=== PATIENT | male | born 1965 ===

== ENCOUNTER 2017-03-24 22:50 | Inpatient (IN) | payer MEDICAID ==
--- NOTE | 2017-03-24 23:07 | C.PDOC ---
History Of Present Illness 51 year old male presents to ED requesting detox from heroin. He reports his last use was 6 hours ago and also admits to drinking alcohol and using cocaine. Denies any symptoms of withdrawals, any suicidal or homicidal ideation or other complaints Time Seen by Provider: 03/24/17 23:03 Chief Complaint (Nursing): Substance Abuse History Per: Patient History/Exam Limitations: no limitations Onset/Duration Of Symptoms: Hrs Past Medical History Reviewed: Historical Data, Nursing Documentation, Vital Signs Vital Signs: Last Vital Signs Temp 98.4 F 03/24/17 22:58 Pulse 84 03/24/17 22:58 Resp 16 03/24/17 22:58 BP 143/86 03/24/17 22:58 Pulse Ox 98 03/25/17 01:05 - Medical History PMH: Back Problems Family History: States: Unknown Family Hx - Social History Hx Tobacco Use: Yes Hx Alcohol Use: No Hx Substance Use: Yes (heroin, cocaine, benzos) - Immunization History Hx Tetanus Toxoid Vaccination: No Hx Influenza Vaccination: No Hx Pneumococcal Vaccination: No Review Of Systems Except As Marked, All Systems Reviewed And Found Negative. Physical Exam - Physical Exam Appears: Non-toxic, No Acute Distress Skin: Warm, Dry, No Diaphoretic, No Rash Head: Atraumatic, Normacephalic Eye(s): bilateral: Normal Inspection Nose: Normal Oral Mucosa: Moist Neck: Normal ROM Chest: Symmetrical Cardiovascular: Rhythm Regular, No Murmur Respiratory: Normal Breath Sounds, No Wheezing Extremity: Bilateral: Atraumatic, Normal Color And Temperature, Normal ROM Neurological/Psych: Oriented x3, Normal Speech ED Course And Treatment - Laboratory Results Result Diagrams: 03/24/17 23:14 03/24/17 23:14 O2 Sat by Pulse Oximetry: 98 Medical Decision Making Medical Decision Making: Patient for heroin detox. Labs ordered for medical clearance. Labs reviewed showing elevated LFT, likely from alcohol; UDS positive for opiate and cocaine. In my clinical judgment patient is medically cleared and stable for psychiatric admission. gathering worker contacted for evaluation. As per CW patient is to be admitted under Dr Ochoa service for detox of opiate abuse. Disposition - Disposition Disposition: HOSPITALIZED Disposition Time: 01:26 Condition: STABLE - POA Present On Arrival: None - Clinical Impression Clinical Impression: Heroin abuse Decision To Admit - Pt Status Changed To: Hospital Disposition Of: Inpatient - Admit Certification Admit to Inpatient:: After my assessment, the patient will require hospitalization for at least two midnights. This is because of the severity of symptoms shown, intensity of services needed, and/or the medical risk in this patient being treated as an outpatient. - InPatient: Physician Admission Certification: I certify that this patient requires 2 or more midnights of care for the following reason:: Patient to be admitted to Dr Ochoa service for detox of opiate abuse. - . Bed Request Type: Detox Admitting Physician: Prerna Ochoa Patient Diagnosis: Heroin abuse
[2017-03-24 23:16] LABS: BASO # 0.1 K/uL (0.0-0.2); BASO % 0.8 % (0.0-2.0); EOS # 0.1 K/uL (0.0-0.7); EOS % 1.5 % (0.0-4.0); HEMOGLOBIN 12.1 g/dL (12.0-18.0); LYMPH # 2.2 K/uL (1.0-4.3); LYMPH % 27.2 % (20.0-40.0); MEAN CELL VOLUME 89.1 fL (80.0-94.0); MEAN CORPUSCULAR HEMOGLOBIN 29.4 pg (27.0-31.0); MEAN PLATELET VOLUME 8.6 fL (7.2-11.7); MONO # 0.5 K/uL (0.0-0.8); NEUT # 5.1 K/uL (1.8-7.0); NEUT % 64.5 % (50.0-75.0); NRBC % 0.1 % (0.0-2.0); RBC 4.1 Mil/uL (4.40-5.90); RED CELL DISTRIBUTION WIDTH 13.1 % (11.5-14.5)
[2017-03-24 23:20] LABS: URINE BACTERIA RARE (<OCC); URINE BILIRUBIN NEGATIVE (NEGATIVE); URINE BLOOD NEGATIVE (NEGATIVE); URINE CLARITY Clear (Clear); URINE COLOR Yellow (YELLOW); URINE GLUCOSE (UA) NORMAL (Normal); URINE LEUKOCYTE ESTERASE NEG Leu/uL (Negative); URINE NITRATE NEGATIVE (NEGATIVE); URINE PROTEIN 1+ mg/dL (NEGATIVE); URINE UROBILINOGEN NORMAL mg/dL (0.2-1.0)
[2017-03-24 23:27] LABS: ALBUMIN 3.9 g/dL (3.5-5.0)
[2017-03-24 23:29] LABS: AST/SGOT 127 U/L (17-59); GFR AFRICAN-AMERICAN > 60; GFR NON-AFRICAN AMERICAN > 60
[2017-03-24 23:30] LABS: ALT/SGPT 128 U/L (21-72); BARBITURATES, UR NEGATIVE (NEGATIVE); BLOOD UREA NITROGEN 15 mg/dL (9-20)
[2017-03-24 23:31] LABS: BENZODIAZEPINES, UR NEGATIVE (NEGATIVE)
[2017-03-24 23:34] LABS: PHENCYCLIDINE, UR NEGATIVE (NEGATIVE)
[2017-03-24 23:35] LABS: OPIATES, UR POSITIVE (NEGATIVE)
[2017-03-25] MEDS ORDERED: Aluminum Hydroxide/Magnesium Hydroxide Susp (30 mL) PO PRN (08:33)
--- NOTE | 2017-03-25 12:10 | PCM.PSYCH ---
Initial Psychiatric Evaluation - Initial Psychiatric Evaluation Type of Admission: Voluntary Legal Status: Capacity Chief Complaint (in patient's own words): 'i'm withdrawing bad" History of Present Illness and Precipitating Events: The patient is seen, chart reviewed and case discussed. 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 The patient is here for heroin detox as he is using 10 bags of IV heroin for the past 10 years, "off and on." His longest sobriety was 2 years but this is his first detox and he has never been to rehabilitation, NA, Suboxone or methadone maintenance. He also uses cocaine by smoking, cigarettes about 10 a day and alcohol about a pint and some beer. He says he has had withdrawals from alcohol but never had DTs or seizures and currently he feels "okay." His last used for both alcohol and heroine was last night around 6 PM. He used alcohol for 15 years. Past psych history: Denies Medical history: Sciatica and hepatitis C. His LFTs are elevated. Family psych history: Denies Current Medications: Active Medications Generic Name Dose Route Start Last Admin Trade Name Freq PRN Reason Stop Dose Admin Al Hydrox/Mg Hydrox/Simethicone 30 ml 03/25/17 08:33 Maalox 30 Ml PO TID PRN Indigestion / Heartburn Clonidine HCl 0.1 mg 03/25/17 08:33 Catapres PO Q8 PRN COWS Score More or Equal to 5 Dicyclomine HCl 10 mg 03/25/17 08:34 Bentyl PO Q6H PRN spasms Hydroxyzine HCl 50 mg 03/25/17 08:34 Atarax PO Q6H PRN Anxiety Ibuprofen 600 mg 03/25/17 08:34 Motrin Tab PO Q6H PRN Pain, moderate (4-7) Loperamide HCl 2 mg 03/25/17 08:33 Imodium PO Q8 PRN Diarrhea Methadone HCl 20 mg 03/25/17 09:00 03/25/17 08:57 Methadone PO 03/30/17 08:59 20 mg Q24H GURDEEP Administration Taper Nicotine 1 patch 03/25/17 12:00 03/25/17 11:56 Nicoderm Cq TD 1 patch DAILY GURDEEP Administration Ondansetron HCl 4 mg 03/25/17 08:33 Zofran Tab PO Q8 PRN Nausea/Vomiting Pneumococcal Polyvalent Vaccine 0.5 ml 03/28/17 10:00 Pneumovax 23 Vaccine IM 03/28/17 10:01 .ONCE ONE Quetiapine Fumarate 100 mg 03/25/17 22:00 Seroquel PO HS GURDEEP Past Psychiatric History - Past Psychiatric History Previous Treatment History: None Pertinent Medical Hx (Current Medical&Sleep Prob, Allergies): Allergies Allergy/AdvReac Type Severity Reaction Status Date / Time No Known Allergies Allergy Verified 03/24/17 23:00 No Known Home Med 08/04/16 Review of Systems - Psychiatric Psychiatric: Abnormal Sleep Pattern, Anxiety, Irritability. absent: Hallucinations, Homicidal Ideation, Suicidal Ideation Mental Status Examination - Personal Presentation Personal Presentation: Looks older than stated age (guarded and evasive) - Affect Affect: Constricted - Motor Activity Motor Activity: Calm - Reliability in Providing Information Reliability in Providing Information: Fair - Speech Speech: Organized - Mood Mood: Anxious - Formal Thought Process Formal Thought Process: No Impairment - Cognitive Functions Orientation: Person, Place, Situation, Time Sensorium: Alert Attention/Concentration: Easily distracted Estimate of Intelligence: Average Judgement: Intact, as evidence by: Insight regarding need for hospitalization Memory: Recent intact, as evidence by: Ability to recall events of the day, Remote intact, as evidenced by: Abilit to recall sig. life events - Risk Risk: Withdrawal, Diminished functioning - Strength & Assets Inventory Strength & Assets Inventory: Employment history, Cooperative - Limitations Limitations: Living alone DSM 5 DX - DSM 5 DSM 5 Diagnosis: Opioid withdrawal Opioid use d/o - severe Cocaine use d/o - severe Alcohol use d/o - severe Hep C Sciatica - Recommended/Plan of Treatment Treatment Recommendations and Plan of Treatment: Opioids: Methadone detox As needed meds and vitamins Attend groups and activities [place] for abstinence and CBT for relapse prevention Support and psychoeducation Consider and encourage MAT Refer to after care Alcohol: Symptom-based detox with ativan Gabapentin for augmentation As needed meds and vitamins Attend groups and activities [place] for abstinence and CBT for relapse prevention Support and psychoeducation Consider and encourage MAT Refer to after care Cocaine: Gabapentin HI for abtinence As above Tobacco; Nicotine patch HI for abstinence 33 min Projected ELOS: 5 days Prognosis: good but he is somewhat motivated about after care Discharge Plan and Discharge Criteria: No wdw sxs Refer to MAT and rehab or IOP - Smoking Cessation Smoking Cessation Initiated: Yes
[2017-03-25] MEDS: Multiple Vitamins Tab PO SCH (14:19)
[2017-03-26] MEDS: Multiple Vitamins Tab PO SCH (09:34)
--- NOTE | 2017-03-26 12:52 | PCM.PYCHPN ---
Psychiatric Progress Note - Psychiatric Progress Note Patient seen today, length of contact: 16 min Patient Chief Complaint: "I was so bad last night, I took an extra 5 mg" Problems Identified/Issues Discussed: The pt is seen, chart reviewed, case discussed with staff. The pt is compliant with medications and reports no side-effects. Symptoms are improving but needs more time to stabilize. After care discussed, support and psychoeducation given. Medication Change: Yes (methadone adjusted) Medical Record Reviewed: Yes Mental Status Examination - Cognitive Function Orientation: Person, Place, Situation, Time Memory: Intact Attention: WNL Concentration: Poor Association: WNL Fund of Knowledge: WNL - Mood Mood: Anxious - Affect Affect: Constricted - Speech Speech: Appropriate - Formal Thought Process Formal Thought Process: No Impairment - Suicidal Ideation Suicidal Ideation: No - Homicidal Ideation Homicidal Ideation: No Goal/Treatment Plan - Goal/Treatment Plan Need for Continued Stay: Discharge may exacerbated symptoms, Severe functional impairment Progress Toward Problem(s) and Goals/Treatment Plan: Opioids: Methadone detox As needed meds and vitamins Attend groups and activities [place] for abstinence and CBT for relapse prevention Support and psychoeducation Consider and encourage MAT Refer to after care Alcohol: Symptom-based detox with ativan Gabapentin for augmentation As needed meds and vitamins Attend groups and activities [place] for abstinence and CBT for relapse prevention Support and psychoeducation Consider and encourage MAT Refer to after care Cocaine: Gabapentin [place] for abtinence As above Tobacco; Nicotine patch [place] for abstinence Estimated Date of D/C: 03/29/17
[2017-03-26 15:36] VITALS: RESP 18
[2017-03-27] MEDS: Multiple Vitamins Tab PO SCH (09:20)
--- NOTE | 2017-03-27 13:26 | PCM.PYCHPN ---
Psychiatric Progress Note - Psychiatric Progress Note Patient seen today, length of contact: 16 min Patient Chief Complaint: "Not doing well" Problems Identified/Issues Discussed: The pt is seen, chart reviewed, case discussed with staff. The pt is compliant with medications and reports no side-effects. He says extra methadone helped but he still gets into wdw a lot, but feels he is improving Support given, after care discussed Medication Change: Yes (methadone adjusted) Medical Record Reviewed: Yes Mental Status Examination - Cognitive Function Orientation: Person, Place, Situation, Time Memory: Intact Attention: WNL Concentration: Poor Association: WNL Fund of Knowledge: WNL - Mood Mood: Anxious - Affect Affect: Constricted - Speech Speech: Appropriate - Formal Thought Process Formal Thought Process: No Impairment - Suicidal Ideation Suicidal Ideation: No - Homicidal Ideation Homicidal Ideation: No Goal/Treatment Plan - Goal/Treatment Plan Need for Continued Stay: Discharge may exacerbated symptoms, Severe functional impairment Progress Toward Problem(s) and Goals/Treatment Plan: Opioids: Methadone detox adjusted As needed meds and vitamins Attend groups and activities [place] for abstinence and CBT for relapse prevention Support and psychoeducation Consider and encourage MAT Refer to after care Alcohol: Symptom-based detox with ativan Gabapentin for augmentation As needed meds and vitamins Attend groups and activities [place] for abstinence and CBT for relapse prevention Support and psychoeducation Consider and encourage MAT Refer to after care Cocaine: Gabapentin [place] for abtinence As above Tobacco; Nicotine patch MT for abstinence Estimated Date of D/C: 03/29/17
[2017-03-28] MEDS: Multiple Vitamins Tab PO SCH (09:25)
[2017-03-28] MEDS ORDERED: Pneumococcal 23-Valent Vaccine IM ONE (10:00)
[2017-03-28 14:19] VITALS: BP 135/90; PULSE 81; TEMP 97.5; O2SAT 100
--- NOTE | 2017-03-28 14:37 | PCM.PYCHDC ---
Mental Status Examination - Mental Status Examination Orientation: Person, Place, Situation, Time Memory: Intact Mood: Anxious Affect: Broad Speech: Appropriate Attention: WNL Concentration: WNL Association: WNL Fund of Knowledge: WNL Formal Thought Process: No Impairment Suicidal Ideation: No Current Homicidal Ideation?: No Discharge Summary - Discharge Note Reason for Hospitalization: Heroin detox Consultations:: List each consultation separately and include: 1. Reason for request. 2. Findings. 3. Follow-up Summary of Hospital Course include:: 1. Description of specific treatment plan utilized for patients during their course of treatmen. 2. Summarize the time- course for resolution of acute symptoms and/or regressed behaviors. 3. Describe issues identified and worked on during hospitalization. 4. Describe medication utilized. 5. Describe medical problems identified and treated. 6. Reassessment of suicide risk Summary of Hospital Course: The patient is seen, chart reviewed and case discussed. 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 The patient is here for heroin detox as he is using 10 bags of IV heroin for the past 10 years, "off and on." His longest sobriety was 2 years but this is his first detox and he has never been to rehabilitation, NA, Suboxone or methadone maintenance. He also uses cocaine by smoking, cigarettes about 10 a day and alcohol about a pint and some beer. He says he has had withdrawals from alcohol but never had DTs or seizures and currently he feels "okay." His last used for both alcohol and heroine was last night around 6 PM. He used alcohol for 15 years. Past psych history: Denies Medical history: Sciatica and hepatitis C. His LFTs are elevated. Family psych history: Denies Hospital course: The pt was admitted and started on treatment with psychotherapy, support, psychoeducation and medications. [place] and CBT used. The pt attended groups and activities, as well as milieu therapy. All the risks and benefits of medications are discussed and the patient understood and agreed. The pt improved with the treatments provided. After care discussed with the patient. Went to [facility] Left a day early - Final Diagnosis (DSM 5) Condition upon Discharge: STABLE DSM 5: Opioid withdrawal Opioid use d/o - severe Cocaine use d/o - severe Alcohol use d/o - severe Hep C Sciatica Disposition: HOME/ ROUTINE Follow-up Treatment Plan: [facility] for Hep C NA Continue below medications after discharge. Follow after care plan as discussed. Use relapse prevention skills Return to ER or call 911 if suicidal, homicidal or symptoms relapse. Stay away from stress, alcohol and drugs. See primary doctor once a year. Prescriptions/Medication Reconciliation: cloNIDine [Catapres] 0.1 mg PO Q8 PRN #4 tab PRN Reason: COWS Score More or Equal to 5 hydrOXYzine HCl [Atarax] 50 mg PO Q8 PRN #60 tab PRN Reason: Anxiety Ibuprofen [Motrin Tab] 600 mg PO Q8 PRN #60 tab PRN Reason: Pain, Moderate (4-7) QUEtiapine [Seroquel] 100 mg PO HS #30 tab traZODone [Desyrel] 50 mg PO HS PRN #30 tab PRN Reason: Insomnia
== END 2017-03-28 14:50 | disposition home or self-care (01) | DRG 744 ==
LOC: C.ER 22:50 → C.7D 03-25 01:25
PROVIDERS: ADMIT Psychiatry & Neurology Psychiatry; ATTEND Psychiatry & Neurology Psychiatry
PROC: HZ2ZZZZ Detoxification Services for Substance Abuse Treatment (ICD-10-PCS; principal; 2017-03-25)
PROC: HZ59ZZZ Individual Psychotherapy for Substance Abuse Treatment, Supportive (ICD-10-PCS; 2017-03-25)
PROC: HZ46ZZZ Group Counseling for Substance Abuse Treatment, Psychoeducation (ICD-10-PCS; 2017-03-25)
PROC: HZ90ZZZ Pharmacotherapy for Substance Abuse Treatment, Nicotine Replacement (ICD-10-PCS; 2017-03-25)
DX: F11.23 Opioid dependence with withdrawal (principal); F10.20 Alcohol dependence, uncomplicated; F14.20 Cocaine dependence, uncomplicated; B18.2 Chronic viral hepatitis C; M54.30 Sciatica, unspecified side; F17.210 Nicotine dependence, cigarettes, uncomplicated

== ENCOUNTER 2017-11-06 14:23 | Emergency (ER) | payer MEDICAID ==
[2017-11-06 14:58] VITALS: BMI 24.4
[2017-11-06 15:05] VITALS: BP 122/71; PULSE 80; RESP 19; TEMP 98.3; O2SAT 99
--- NOTE | 2017-11-06 15:54 | C.PDOC ---
History Of Present Illness 52 y/o male presents to ED requesting detox from heroin. Notes using heroin intranasally and IV, last use was at midnight. Denies fever, cough, chest pain, or any other complaints. Chief Complaint (Nursing): Substance Abuse History Per: Patient History/Exam Limitations: no limitations Past Medical History Reviewed: Historical Data, Nursing Documentation, Vital Signs Vital Signs: Last Vital Signs Temp 98.3 F 11/06/17 14:58 Pulse 80 11/06/17 14:58 Resp 19 11/06/17 14:58 BP 122/71 11/06/17 14:58 Pulse Ox 99 11/06/17 15:54 - Medical History PMH: Back Problems, Hepatitis (Hepatitis C. No treatment) Denies: Diabetes (Patient denied), HIV (Patient denied), HTN (Patient denied) , Chronic Kidney Disease, Seizures (Patient denied), Sexually Transmitted Disease (Patient denied) - [facility] Procedures DETOXIFICATION SERVICES FOR SUBSTANCE ABUSE TREATMENT (03/25/17) GROUP ECOLOGICAL TECHNICAL OFFICER FOR SUBSTANCE ABUSE TREATMENT, PSYCHOEDUCATION (03/25/17) INDIV PSYCHOTHERAPY FOR SUBSTANCE ABUSE TREATMENT, SUPPORT (03/25/17) PHARMACOTHERAPY FOR SUBSTANCE ABUSE, NICOTINE REPLACE (03/25/17) Family History: States: Unknown Family Hx - Social History Hx Tobacco Use: Yes Hx Alcohol Use: Yes Hx Substance Use: Yes (heroin, cocaine, alcohol) - Immunization History Hx Tetanus Toxoid Vaccination: No Hx Influenza Vaccination: No Hx Pneumococcal Vaccination: No Review Of Systems Except As Marked, All Systems Reviewed And Found Negative. Constitutional: Negative for: Fever, Chills Cardiovascular: Negative for: Chest Pain, Palpitations Respiratory: Negative for: Cough, Shortness of Breath Physical Exam - Physical Exam Appears: Non-toxic, No Acute Distress Skin: Normal Color, Warm, Dry Head: Atraumatic, Normacephalic Eye(s): bilateral: Normal Inspection Oral Mucosa: Moist Cardiovascular: Rhythm Regular Respiratory: Normal Breath Sounds, No Rales, No Rhonchi, No Wheezing Gastrointestinal/Abdominal: Soft, No Tenderness Extremity: Normal ROM Neurological/Psych: Oriented x3, Normal Speech ED Course And Treatment O2 Sat by Pulse Oximetry: 99 Disposition - Disposition Referrals: [facility] [Outside] [facility] [Outside] Disposition: HOME/ ROUTINE Disposition Time: 16:40 Condition: GOOD Additional Instructions: Thank you for letting us take care of you today. The emergency medical care you received today was directed at your acute symptoms. If you were prescribed any medication, please fill it and take as directed. It may take several days for your symptoms to resolve. Return to the Emergency Department if your symptoms worsen, do not improve, or if you have any other problems. Please contact your doctor or call one of the physicians/clinics you have been referred to that are listed on the Patient Visit Information form that is included in your discharge packet. Bring any paperwork you were given at discharge with you along with any medications you are taking to your follow up visit. Our treatment cannot replace ongoing medical care by a primary care provider (PCP) outside of the emergency department. Thank you for allowing the [facility] team to be part of your care today. Follow up with the clinic this week for outpatient care. Instructions: Polysubstance Abuse Forms: [employer] (Czech) - Clinical Impression Clinical Impression: Drug dependence - Scribe Statement The provider has reviewed the documentation as recorded by the Leonaibaime Mcguire All medical record entries made by the Leonaibaime were at my direction and personally dictated by me. I have reviewed the chart and agree that the record accurately reflects my personal performance of the history, physical exam, medical decision making, and the department course for this patient. I have also personally directed, reviewed, and agree with the discharge instructions and disposition.
== END 2017-11-06 17:05 | disposition home or self-care (01) ==
LOC: C.ER 14:23
DX: F19.20 Other psychoactive substance dependence, uncomplicated (principal)

== ENCOUNTER 2018-04-09 14:10 | Emergency (ER) | payer MEDICAID ==
[2018-04-09 14:11] VITALS: BMI 24.4
[2018-04-09 14:17] VITALS: BP 147/90; PULSE 106; RESP 16; TEMP 97.6; O2SAT 97
--- NOTE | 2018-04-09 15:03 | C.PDOC ---
History Of Present Illness 53 year old male presents to the ED requesting detox from alcohol, cocaine, and heroin. L ast use of all substances was this morning prior to arrival. Patient offers no physical complaints. He denies any suicidal or homicidal ideations. Time Seen by Provider: 04/09/18 14:21 Chief Complaint (Nursing): Substance Abuse History Per: Patient History/Exam Limitations: no limitations Onset/Duration Of Symptoms: Days Current Symptoms Are (Timing): Still Present Modifying Factor(s): Alcohol, Narcotics (heroin), Cocaine Severity: Moderate Associated Symptoms: denies: Suicidal Thoughts Past Medical History Reviewed: Historical Data, Nursing Documentation, Vital Signs Vital Signs: Last Vital Signs Temp 97.6 F 04/09/18 14:14 Pulse 106 H 04/09/18 14:14 Resp 16 04/09/18 14:14 BP 147/90 04/09/18 14:14 Pulse Ox 97 04/09/18 15:15 - Medical History PMH: Back Problems, Depression, Hepatitis (Hepatitis C. No treatment) Surgical History: No Surg Hx - [facility] Procedures DETOXIFICATION SERVICES FOR SUBSTANCE ABUSE TREATMENT (03/25/17) GROUP WRONG ADDRESS CLERK FOR SUBSTANCE ABUSE TREATMENT, PSYCHOEDUCATION (03/25/17) INDIV PSYCHOTHERAPY FOR SUBSTANCE ABUSE TREATMENT, SUPPORT (03/25/17) PHARMACOTHERAPY FOR SUBSTANCE ABUSE, NICOTINE REPLACE (03/25/17) Family History: States: No Known Family Hx - Social History Hx Tobacco Use: Yes Hx Alcohol Use: Yes Hx Substance Use: Yes (heroin, cocaine, alcohol) - Immunization History Hx Tetanus Toxoid Vaccination: No Hx Influenza Vaccination: No Hx Pneumococcal Vaccination: No Review Of Systems Constitutional: Negative for: Fever, Chills Cardiovascular: Negative for: Chest Pain, Palpitations Respiratory: Negative for: Cough, Shortness of Breath Gastrointestinal: Negative for: Nausea, Vomiting, Abdominal Pain, Diarrhea Neurological: Negative for: Headache, Dizziness Psych: Negative for: Suicidal ideation, Withdrawal Physical Exam - Physical Exam Appears: Well, Non-toxic, No Acute Distress Skin: Normal Color, Warm Head: Atraumatic, Normacephalic Eye(s): bilateral: Normal Inspection Oral Mucosa: Moist Cardiovascular: Rhythm Regular Respiratory: Normal Breath Sounds, No Rales, No Rhonchi, No Wheezing Gastrointestinal/Abdominal: Normal Exam, Bowel Sounds, Soft, No Tenderness Extremity: Normal ROM, No Pedal Edema, No Calf Tenderness Extremity: Bilateral: Atraumatic, Normal Color And Temperature, Normal ROM Neurological/Psych: Oriented x3 Gait: Steady ED Course And Treatment O2 Sat by Pulse Oximetry: 97 (RA) Pulse Ox Interpretation: Normal Progress Note: Patient was prescreened for detox. BLood work, UA, UDS ordered and reviewed. 3:00pm- Patient now states he wants to leave, no longer wants detox admission. Crisis informed. Patient is AAOx3, ambulating normally in the ED, and is clinically sober. Disposition Counseled Patient/Family Regarding: Studies Performed, Diagnosis, Need For Followup - Disposition Referrals: [facility] [Outside] Disposition: HOME/ ROUTINE Disposition Time: 15:00 Condition: STABLE Forms: [facility] (Chinese), General Discharge Instructions Print Language: TUNISIAN - POA Present On Arrival: None - Clinical Impression Clinical Impression: Substance abuse - Scribe Statement The provider has reviewed the documentation as recorded by the Kory Wells Provider Attestation: All medical record entries made by the Leonaibaime were at my direction and personally dictated by me. I have reviewed the chart and agree that the record accurately reflects my personal performance of the history, physical exam, medical decision making, and the department course for this patient. I have also personally directed, reviewed, and agree with the discharge instructions and disposition.
== END 2018-04-09 15:13 | disposition home or self-care (01) ==
LOC: C.ER 14:10
DX: F19.10 Other psychoactive substance abuse, uncomplicated (principal)